=== PATIENT | male | born 1995 | race Caucasian/White ===

== ENCOUNTER 2018-02-06 10:30 | Emergency (ER) | payer OTHER, SELFPAY ==
[2018-02-06 10:30] VITALS: BP 103/63; PULSE 54; RESP 12; TEMP 36.6; O2SAT 100
--- NOTE | 2018-02-06 10:56 | ED_ITS ---
HPI - General Adult General Chief complaint: Blood/Body fluid exposure Stated complaint: EXPOSURE TO BODILY FLUID Time Seen by Provider: 02/06/18 10:56 Source: patient Mode of arrival: ambulatory Limitations: no limitations History of Present Illness HPI narrative: Patient is an otherwise healthy 22-year-old male who is a active [employer] who earlier today was called out to a crew ship in the local area for an elderly gentleman with CPR in progress. When he arrived he did performed chest compressions and also [id number] resuscitation with a buried device and also bag-valve mask resuscitation. They reported that the patient did have respiratory secretions and there was also some concern that with the unsuccessful resuscitation when they are placing the individual nobody back his IV came out and there was blood in the area. Patient was not poke with any needles. Was brought here for evaluation. Review of Systems Review of Systems All systems reviewed & are unremarkable except as noted in HPI and below PFSH Medical History Healthy adult (Acute) Surgical History No pertinent past surgical history (Acute) Exam Initial Vital Signs Initial Vital Signs: Vital Signs Temperature 98 F 02/06/18 10:30 Pulse Rate 54 L 02/06/18 10:30 Respiratory Rate 12 02/06/18 10:30 Blood Pressure 103/63 02/06/18 10:30 Pulse Oximetry 100 02/06/18 10:30 Const General: cooperative, healthy appearing, comfortable, well developed, well groomed and No acute distress Orientation: alert, awake and oriented x3 HENMT Head: normal to inspection and normocephalic Resp Effort & Inspection: normal respiratory effort Skin Lesions: no lesions Rashes: no rashes Neuro General: alert and awake Extrem General: normal to inspection Psych Appearance: grossly normal and well kempt Medical Decision Making [facility] Narrative Medical decision making narrative: Patient is otherwise healthy. He had no direct exposure to any bodily fluids. I feel like his risk is very low for blood borne pathogen infections. The patient's medical records secretary from his command is here. I informed this welding equipment sales representative that I do not feel like the patient needs any blood drawn. The medical records secretary informed me that it was [employer] ?policy ?that he does get blood drawn. I asked him if he had a copy this policy which he did not have. I asked him what blood test they felt like he needed and he was unable to come up with any answers. I informed this welding equipment sales representative that if he does not have a copy of the policy or know what they 1 drawn then it sounds like he was leaving at up to me to make these decisions. I informed him that I did not think that the patient needed any blood drawn. I did inform him that I would be happy to help them out and draw the blood if he could tell me what they would like to have drawn. He could not tell me this so they decided to be discharged [place] Patient was given return precautions. Discharge Plan Departure Patient Disposition: Home Clinical Impression: Normal exam Discharge Date/Time: 02/06/18 12:19 Interventions: ED Discharge Assessment Last Done: 02/06/18 12:13 Instructions: DI for Accidental Exposure to Body Fluids Activity Restrictions/Additional Instructions: Your exposure today is very low risk for developing blood borne pathogen infections. You have no restrictions on her activity.
--- NOTE | 2018-02-06 11:50 | PC.NURSE ---
Blood/Body Fluid Assessment: Pt in [facility] [employer]. Was performing chest compressions and rescue breaths to an 86 year old individual. Was using a bag mask valve to perform rescue breaths. Did not come into contact with any bodily fluids. Sent by [employer] for exposure panel.
== END 2018-02-06 12:19 | disposition home or self-care (01) ==
PROVIDERS: Emergency Provider Emergency Medicine
DX: Z71.1 Person with feared health complaint in whom no diagnosis is made (principal)
CPT/HCPCS: 99282